=== PATIENT | male | born 1960 | race Caucasian/White ===

== ENCOUNTER 2021-05-21 12:48 | Day surgery (SDC) | payer OTHER ==
[2021-05-21] MEDS ORDERED: BUPIVACAINE 0.5% VIAL IJ ONE (12:49)
[2021-05-21] MEDS ORDERED: Depo-Medrol 40 MG/ML IM ONE (12:49)
[2021-05-21] MEDS ORDERED: Lactated Ringers 1,000 ML IV ONE (15:27)
[2021-05-21] MEDS ORDERED: DIPRIVAN 200 MG/20 ML IV ONE (15:45)
--- NOTE | 2021-05-21 16:51 | XRAY ---
Indication: Right SI joint injection. Intraoperative fluoroscopy provided for 6 seconds. 2 digital spot images submitted for interpretation demonstrates posterior needle tip projecting over the inferior right SI joint. Correlate with intraoperative findings/report.
--- NOTE | 2021-05-21 17:02 | XRAY ---
6 seconds fluoroscopy time in surgery for injection of the right SI joint.
== END 2021-05-21 16:07 | disposition home or self-care (01) ==
LOC: SDC-PAIN 12:48
PROVIDERS: ATTEND Psychiatry & Neurology Pain Medicine
DX: M46.1 Sacroiliitis, not elsewhere classified (principal); I10 Essential (primary) hypertension; Z79.899 Other long term (current) drug therapy
CPT/HCPCS: 27096; 72020; 77002; G0260; J1030; J2704